=== PATIENT | male | born 1975 | race Caucasian/White ===

== ENCOUNTER 2020-03-24 07:02 | Emergency (ER) | payer BC, SELFPAY ==
[~2020-03-24] VITALS: Ht 175.3 cm; Wt 81.6 kg
[~2020-03-24 07:02] MED LIST: ACET-1172; HYDR-500; NAPR-1172; PRED5TAB
[2020-03-24 07:05] VITALS: BP_SYST 111
--- NOTE | 2020-03-24 07:05 | NUR ---
Pt ambulatory to bed 8 for evaluation
[2020-03-24] MEDS ORDERED: IPRATROPIUM/ALBUTEROL SULFATE 3 ML AMPUL.NEB (DUONEB) INH ONE (07:15)
--- NOTE | 2020-03-24 07:20 | NUR ---
pt arrives from home w/ c/o SOB x 4 days. Pt does not report another symtpoms at the moment. Denies cough, fever, or chills.
--- NOTE | 2020-03-24 07:38 | NUR ---
12 lead EKG given to
--- NOTE | 2020-03-24 07:45 | NUR ---
Covid19 and flu swabs collected
--- NOTE | 2020-03-24 07:55 | NUR ---
ER at bedside examining patient.
--- NOTE | 2020-03-24 08:00 | NUR ---
pt getting labs drawn at the bedside
[2020-03-24 08:06] LABS: BASOPHILS % (AUTO) 0.4 % (0.0-2.0); EOSINOPHILS # (AUTO) 0.7 K/uL (0.0-0.4); EOSINOPHILS % (AUTO) 9.1 % (0.0-4.0); HEMATOCRIT 48.9 % (36-54); LYMPHOCYTES # (AUTO) 1.8 K/uL (1.0-5.5); MEAN CORPUSCULAR HEMOGLOBIN 28 pg (27-31); MEAN CORPUSCULAR HGB CONC 33 % (32-36); MEAN CORPUSCULAR VOLUME 86 fL (79.0-98.0); MONOCYTES # (AUTO) 0.6 K/uL (0.0-1.0); MONOCYTES % (AUTO) 8.4 % (1.7-9.3); NEUTROPHILS # (AUTO) 4.3 K/uL (1.8-7.7); NEUTROPHILS % (AUTO) 58.1 % (40.0-70.0); PLATELET COUNT (AUTO) 201 K/uL (130-430); RED BLOOD CELL COUNT(AUTO) 5.68 MIL/uL (4.2-6.2); RED CELL DISTRIBUTION WIDTH 15.6 % (9.0-15.0); WHITE BLOOD COUNT (AUTO) 7.3 K/uL (4.8-10.8)
[2020-03-24 08:20] LABS: ANION GAP 7 (5-15); CALCIUM 8.6 mg/dL (8.4-11.0); CHLORIDE 104 mmol/L (98-107); CREATININE 1.19 mg/dL (0.55-1.30); GLUCOSE 101 mg/dL (70-99); POTASSIUM 4.3 mmol/L (3.5-5.1); SODIUM SERUM 140 mmol/L (136-145); UREA NITROGEN, BLOOD 23 mg/dL (8-21)
[2020-03-24 08:26] LABS: GFR AFRICAN AMERICAN 85 mL/min (>90)
[2020-03-24 08:28] LABS: ALANINE AMINOTRANSFERASE 29 U/L (12-78); ALBUMIN 3.5 g/dL (3.4-4.8); ASPARTATE AMINOTRANSFERASE 23 U/L (10-37); TOTAL BILIRUBIN 1.3 mg/dL (0.0-1.0)
[2020-03-24 08:45] VITALS: BP_SYST 118
--- NOTE | 2020-03-24 08:46 | NUR ---
Patient given written and verbal discharge instructions and verbalizes understanding. ER MD discussed with patient the results and treatment provided. Patient in stable condition. ID arm band removed. Rx of albuterol given. Patient educated on pain management and to follow up with PMD. Pain Scale 0/10. Opportunity for questions provided and answered. Medication side effect fact sheet provided.
== END 2020-03-24 08:55 | disposition home or self-care (01) ==
LOC: SED 07:02 → EEVIPCON 07:02 → SED 08:55
DX: J06.9 Acute upper respiratory infection, unspecified (principal); J45.909 Unspecified asthma, uncomplicated; Z20.828 Contact with and (suspected) exposure to other viral communicable diseases
CPT/HCPCS: 71045; 80053; 84484; 85025; 86710; 93005; 94640; 99285; U0003